=== PATIENT | female | born 1950 | race Caucasian/White ===

== ENCOUNTER → 2018-08-01 | Outpatient (CLI) | payer MEDICARE | END | disposition home or self-care (01) | LOC: RAH 09:48 | PROVIDERS: ATTEND Internal Medicine Gastroenterology | DX: K21.9 Gastro-esophageal reflux disease without esophagitis (principal) | CPT/HCPCS: 74240 ==

== ENCOUNTER 2019-08-16 15:06 | Inpatient (IN) | payer MEDICARE ==
[~2019-08-16] VITALS: Ht 154.9 cm; Wt 55.1 kg
[2019-08-16] MEDS ORDERED: SODIUM CHLORIDE 0.9% 1000ML 1,000 ML IV ONE (15:55)
[2019-08-16 16:20] LABS: BASOPHILS % (AUTO) 0.1 % (0.0-5.0); EOSINOPHILS % (AUTO) 0.1 % (0.0-8.0); HEMATOCRIT 37.3 % (36-48); LYMPHOCYTES % (AUTO) 1.5 % (21.0-51.0); MEAN CORPUSCULAR HEMOGLOBIN 27.9 pg (27.0-33.0); MEAN CORPUSCULAR HGB CONC 34.6 g/dL (32.0-36.0); MEAN CORPUSCULAR VOLUME 80.7 fL (79-99); MONOCYTES % (AUTO) 3.4 % (3.0-13.0); NEUTROPHILS % (AUTO) 93.5 % (40.0-77.0); PLATELET COUNT (AUTO) 148 K/uL (130-400); RED BLOOD CELL COUNT(AUTO) 4.62 MIL/uL (4.00-5.50); RED CELL DISTRIBUTION WIDTH 15.7 % (11.0-15.5); WHITE BLOOD COUNT (AUTO) 21.5 K/uL (4.8-10.8)
[2019-08-16] MEDS ORDERED: ZOSYN 3.375GM+NS 50ML 50 ML IV ONE (16:21)
[2019-08-16] MEDS ORDERED: VANCOMYCIN 1GM+NS 250ML 250 ML IV ONE (16:22)
[2019-08-16 16:33] LABS: INR 1.06 (0.85-1.15); PARTIAL THROMBOPLASTIN TIME 25.7 SEC (26.3-35.5); PROTHROMBIN TIME 11.4 SEC (9.6-11.6)
[2019-08-16 16:46] LABS: ALANINE AMINOTRANSFERASE 52 U/L (12-78); ALBUMIN 2.3 g/dL (3.5-5.0); ASPARTATE AMINOTRANSFERASE 16 U/L (10-37); CARBON DIOXIDE 33 mmol/L (21-32); CREATINE KINASE, TOTAL 58 U/L (21-232); CREATININE 0.6 mg/dL (0.5-1.5); GLOMERULAR FILTR. RATE CALC 106 mL/min (>60); GLUCOSE,RANDOM 165 mg/dL (70-105); MYOGLOBIN 65 ng/mL (10-92); SODIUM SERUM 124 mmol/L (136-145); TOTAL PROTEIN, SERUM 5.4 g/dL (6.0-8.3); TROPONIN I < 0.04 ng/mL (0.00-0.06); UREA NITROGEN, BLOOD 13 mg/dL (7-18)
[2019-08-16 16:49] LABS: POTASSIUM 2.9 mmol/L (3.5-5.1)
[2019-08-16 16:50] LABS: CHLORIDE 88 mmol/L (101-111)
[2019-08-16] MEDS ORDERED: POTASSIUM CHLORIDE 20MEQ/100ML 100 ML IV ONE (17:11)
[2019-08-16] MEDS ORDERED: IPRATROPIUM/ALBUTEROL SULFATE 3 ML SOLUTION IH ONE (17:20)
[2019-08-16 19:00] VITALS: BP 154/97
[2019-08-16 19:04] LABS: ABG BASE EXCESS 3.8 mmol/L (-2.0-3.0); ABG OXYGEN SATURATION 91.6 % (95.0-99.0); ABG PCO2 41 mmHg (32-45)
[2019-08-16] MEDS ORDERED: VANCOMYCIN PROTOCOL PER PHARMACY IV SCH (20:00)
[2019-08-16] MEDS: SODIUM CHLORIDE 0.9% 1000ML 1,000 ML IV SCH ×2 (20:00→23:57)
--- NOTE | 2019-08-16 20:00 | NUR ---
SOB PT NOTED TO BE HAVING SOB. RT INFORMS PRODUCT DEVELOPER THAT PT'S BIPAP HAD ALREADY INCREASED TO 50% FIO2. KEPT ON HIGH MONDRAGON'S POSITION. WILL MONITOR PT CLOSELY. Addendum: 08/16/19 at 2202 by BRENNA PIERSON RN RN Amended: Links added.
[2019-08-16] MEDS: ZOSYN 3.375GM+NS 50ML 50 ML IV SCH (21:24)
--- NOTE | 2019-08-16 21:25 | NUR ---
MEDS SHIFT ASSESSMENT DONE, PLEASE REFER TO CHART. DUE MEDS ADMINISTERED, TOLERATED WELL. KEPT RESTED AND COMFORTABLE. CALL LIGHT WITHIN REACH. KEPT ON BIPAP. WILL MONITOR CLOSELY.
[2019-08-16] MEDS: IPRATROPIUM/ALBUTEROL SULFATE 3 ML SOLUTION IH SCH (22:14)
--- NOTE | 2019-08-16 22:15 | NUR ---
RT RT INFORMS COMPUTER AIDED DESIGN DESIGNER THAT PT IS WHEEZING AND IS HAVING A LOT OF ANXIETY. TRIED TO CALM PT DOWN. BREATHING TREATMENT CURRENTLY BEING GIVEN. WILL GRACE OTTO.
--- NOTE | 2019-08-16 22:30 | NUR ---
CALL CALLED NUMBER AVAILABLE FOR DR LUONG, BUTTER LIQUEFIER, MESSAGED LEFT. AWAITING CALL BACK.
[2019-08-16] MEDS ORDERED: ANTACID PO (22:59)
[2019-08-16] MEDS ORDERED: CLOT15CR23 TP (22:59)
[2019-08-16] MEDS ORDERED: DOCU-116 PO (22:59)
[2019-08-16] MEDS ORDERED: METO-408 PO (22:59)
[2019-08-16] MEDS ORDERED: DEXA PO (22:59)
[2019-08-16] MEDS ORDERED: ALPR0.5T8 PO (22:59)
[2019-08-16] MEDS ORDERED: BENADRY PO (22:59)
[2019-08-16] MEDS ORDERED: [UNRECOGNIZED DRUG - OTHER] PO (22:59)
[2019-08-16] MEDS ORDERED: BALS60OI TP (22:59)
[2019-08-16] MEDS ORDERED: FLUT15.845 NS (22:59)
[2019-08-16] MEDS ORDERED: BENZ-51 PO (22:59)
[2019-08-16] MEDS ORDERED: ONDA8TAB12 PO (22:59)
[2019-08-16] MEDS ORDERED: PREGNENOLONE PO (22:59)
[2019-08-16] MEDS ORDERED: ESOM40CA54 PO (22:59)
[2019-08-16] MEDS ORDERED: IPRA3AMP24 IH (22:59)
[2019-08-16] MEDS ORDERED: AMLO-257 PO (22:59)
[2019-08-16] MEDS ORDERED: DIPH1TAB24 PO (22:59)
--- NOTE | 2019-08-16 23:00 | NUR ---
NO CALL BACK FROM DR LUONG. RESOURCE NURSE ASKED FOR ANOTHER NUMBER FOR MD. TRIED NUMBER BUT IS DISCONNECTED. PAGED DR BRAY VIA ANSWERING SERVICE. WAS MADE AWARE OF PT'S CONDITION, SOB WITH ANXIETY AND PT ON BIPAP. INFORMED OF DR OWEN'S ORDERS REQUESTED. NEW ORDERS GIVEN, PLEASE REFER TO CPOE. WILL MEDICATE PT.
[2019-08-16] MEDS ORDERED: DIPHENOXYLATE HCL/ATROPINE 2.5/0.025 MG TAB PO SCH (23:15)
[2019-08-16] MEDS ORDERED: DOCUSATE SODIUM 100 MG CAP PO PRN (23:15)
[2019-08-16 23:19] VITALS: BP 176/109
[2019-08-16] MEDS: METHYLPREDNISOLONE SOD SUCC 125MG/2ML VIAL IVP SCH (23:22)
[2019-08-16] MEDS: BENZONATATE 100 MG CAPSULE PO SCH (23:22)
[2019-08-16] MEDS: ALPRAZOLAM 0.5 MG TABLET PO PRN (23:22)
[2019-08-16] MEDS ORDERED: DIPHENOXYLATE HCL/ATROPINE 2.5/0.025 MG TAB PO PRN (23:30)
[2019-08-17] MEDS ORDERED: ONDANSETRON ODT 4 MG TAB PO PRN (00:15)
--- NOTE | 2019-08-17 02:00 | NUR ---
ROUNDS PT IS FAIRLY ASLEEP, STILL ON BIPAP. KEPT RESTED AND UNDISTURBED FOR NOW. WILL CONTINUE TO MONITOR. CALL LIGHT WITHIN REACH.
[2019-08-17] MEDS: IPRATROPIUM/ALBUTEROL SULFATE 3 ML SOLUTION IH SCH ×3 (03:00→10:00)
--- NOTE | 2019-08-17 03:00 | NUR ---
RT MARIO,RT, IN ROOM DOING TREATMENT WHEN PT WANTED TO GET OUT OF BED AND WANTING BIPAP TO BE REMOVED. RT EXPLAINED NEED FOR BIPAP AT THIS TIME AND CONSUMER LOAN UNDERWRITER EXPLAINED NEED TO BE BR FOR NOW. PT CALM DOWN AND AGREED TO KEEP BIPAP AND BE ON BR YET. WILL MONITOR CLOSELY.
[2019-08-17 03:30] VITALS: BP 147/79
[2019-08-17] MEDS: ZOSYN 3.375GM+NS 50ML 50 ML IV SCH ×3 (04:37→21:12)
[2019-08-17] MEDS: SODIUM CHLORIDE 0.9% 1000ML 1,000 ML IV SCH ×3 (05:18→23:27)
--- NOTE | 2019-08-17 05:20 | NUR ---
MEDS DUE MEDS ADMINISTERED, TOLERATED WELL. STILL HAVING SOB EVEN AT REST. KEPT PT ON BIPAP. ASSISTED WITH BEDPAN THEN CHANGED WET LINEN. RE-POSITIONED COMFORTABLY IN BED WITH HOB ELEVATED. FOR MORE CARE.
[2019-08-17] MEDS: METHYLPREDNISOLONE SOD SUCC 125MG/2ML VIAL IVP SCH ×4 (05:23→23:26)
[2019-08-17] MEDS: BENZONATATE 100 MG CAPSULE PO SCH ×4 (05:23→23:26)
--- NOTE | 2019-08-17 06:30 | NUR ---
PAGED PT'S LAB WORK ON ADMISSION IS ABNORMAL, NO REPEAT LABS THIS AM. PT HAS A PORT-A-CATH THAT WAS ACCESSED OUT PT, NEED ORDER FOR USE. DR OWEN PAGED VIA ANSWERING SERVICE, AWAITING CALL BACK.
[2019-08-17 07:24] LABS: HEMATOCRIT 40.7 % (36-48); MEAN CORPUSCULAR HEMOGLOBIN 26.9 pg (27.0-33.0); MEAN CORPUSCULAR HGB CONC 32.7 g/dL (32.0-36.0); MEAN CORPUSCULAR VOLUME 82.2 fL (79-99); PLATELET COUNT (AUTO) 128 K/uL (130-400); RED BLOOD CELL COUNT(AUTO) 4.95 MIL/uL (4.00-5.50); RED CELL DISTRIBUTION WIDTH 16.2 % (11.0-15.5); WHITE BLOOD COUNT (AUTO) 23.1 K/uL (4.8-10.8)
[2019-08-17 07:30] VITALS: BP 174/68
[2019-08-17 07:41] LABS: CREATININE 0.7 mg/dL (0.5-1.5); POTASSIUM 3.6 mmol/L (3.5-5.1)
--- NOTE | 2019-08-17 08:00 | NUR ---
PT AAO X3 REVIEW PLAN OF CARE, HOB UP ON 4 LITER NC, GET SOB ,AND WEAK , WHEN SHE MOVES ,WITH ANY A CTIVITY, REVIEW PLAN OF CARE, AND CALL LIGHT IN REACH,, PT GETTING BREATHING TREATMENT Q 4 HRS .
[2019-08-17] MEDS: FLUTICASONE PROPIONATE 50MCG/SPRAY 16 GM BOTTLE EN SCH (09:00)
[2019-08-17] MEDS ORDERED: [UNRECOGNIZED DRUG - OTHER] PO SCH (09:00)
[2019-08-17] MEDS: BALSAM PERU/CASTOR OIL 60 GM TUBE TP SCH ×4 (09:00→21:13)
[2019-08-17] MEDS: PHARMACY COMMUNICATION MISC SCH ×2 (09:00→21:00)
[2019-08-17] MEDS: PREGNENOLONE PO SCH (09:00)
[2019-08-17] MEDS: CLOTRIMAZOLE 30 GM CREAM.GM. TP SCH ×2 (09:00→21:13)
[2019-08-17] MEDS: METOPROLOL SUCCINATE 50 MG TAB.SR.24H PO SCH ×2 (10:00→21:13)
[2019-08-17] MEDS: AMLODIPINE BESYLATE 5 MG TAB PO SCH (10:00)
[2019-08-17] MEDS: PANTOPRAZOLE SODIUM 40 MG TABLET.DR PO SCH (10:00)
[2019-08-17] MEDS: VANCOMYCIN 1GM+NS 250ML 250 ML IV SCH ×2 (10:00→21:12)
[2019-08-17] MEDS: ALPRAZOLAM 0.5 MG TABLET PO PRN ×2 (10:17→21:13)
--- NOTE | 2019-08-17 10:49 | NUR ---
INITIAL Patient lives with spouse, Papi Nunez, . No home services. DME: walker, shower chair, BPM, O2 concentrator/portable. Patient does not remember the name of the O2 company. Patient is able to drive and complete ADL's independently. PCP is Dr. Constantino Willson. Pharmacy is [facility] located on [address] [facility] in [place]. DCP is home. Addendum: 08/17/19 at 1053 by ISMAEL BABIN SS Amended: Links added.
[2019-08-17 11:00] VITALS: BP 159/90
[2019-08-17] MEDS: IPRATROPIUM 0.5 MG/2.5 ML INH IH SCH ×3 (14:00→21:46)
[2019-08-17 16:00] VITALS: BP 173/94
[2019-08-17 20:10] VITALS: BP 160/94
--- NOTE | 2019-08-17 21:15 | NUR ---
MEDS SHIFT ASSESSMENT DONE, PLEASE REFER TO CHART. INSERTED A SECOND PIV G20 TO RFA. DUE MEDS ADMINISTERED, TOLERATED WELL. KEPT COMFORTABLE IN BED. CALL LIGHT WITHIN REACH. WILL MONITOR PT. Addendum: 08/18/19 at 0209 by BRENNA PIERSON RN RN Amended: Links added.
--- NOTE | 2019-08-17 22:20 | NUR ---
CONSULT RESOURCE NURSE ASKED FOR DR LUONG'S NUMBER. FIRST NUMBER IS A WRONG NUMBER. SECOND NUMBER CALLED AND WAS ABLE TO TALK TO DR LUONG. INFORMED OF CONSULT AND PT'S CONDITION. NO OTHER GIVEN AT THIS TIME. STATED HE WILL SEE PT IN AM.
[2019-08-17 23:35] VITALS: BP 153/92
[2019-08-18] VITALS (21 sets, daily range): BP systolic 115–170; BP diastolic 61–99
[2019-08-18] MEDS: IPRATROPIUM 0.5 MG/2.5 ML INH IH SCH ×6 (01:05→22:10)
--- NOTE | 2019-08-18 01:30 | NUR ---
ASSISTED PT ASSISTED WITH THE BEDPAN, NOTED TO BE VERY WEAK AT THIS TIME. TOTAL ASSIST WHEN TURNING IN BED. PT GETS VERY SOB WITH SLIGHT MOVEMENT. MAINTAINED HOB ELEVATED AND ON O2 AT 2LPM VIA NC.
[2019-08-18 01:41] LABS: APPEARANCE,URINE CLEAR (CLEAR); BILIRUBIN,URINE Negative (NEGATIVE); COLOR,URINE Yellow (YELLOW); GLUCOSE, URINE (UA) TRACE mg/dL (NEGATIVE); KETONES,URINE Negative (NEGATIVE); LEUKOCYTE ESTERASE ,URINE Negative (NEGATIVE); NITRATE,URINE Negative (NEGATIVE); OCCULT BLOOD,URINE Negative (NEGATIVE); PROTEIN,URINE POS 1+ mg/dL (NEGATIVE); UROBILINOGEN,URINE 0.2 mg/dL (0.2-1.0)
[2019-08-18 01:49] LABS: BACTERIA,URINE Few /HPF (None Seen); HYALINE CASTS, URINE 0-1 /LPF (0-1 /LPF); MUCUS,URINE Rare LPF (None Seen)
--- NOTE | 2019-08-18 04:00 | NUR ---
ROUNDS PT CALLS FOR HELP. NOTED TO STILL HAVING SOB AT REST. PT REQUESTING TO MARIELLA HER THIGHS. SHE CLAIMS THE NEED TO MOVE HER LEGS. DONE REQUESTED. KEPT RESTED WITH O2 VIA NC ON. WILL MONITOR CLOSELY. Addendum: 08/18/19 at 0429 by BRENNA PIERSON RN RN Amended: Links added.
[2019-08-18] MEDS: ZOSYN 3.375GM+NS 50ML 50 ML IV SCH ×3 (04:34→20:54)
[2019-08-18] MEDS: BENZONATATE 100 MG CAPSULE PO SCH ×4 (04:39→23:13)
[2019-08-18] MEDS: METHYLPREDNISOLONE SOD SUCC 125MG/2ML VIAL IVP SCH ×3 (05:09→18:20)
--- NOTE | 2019-08-18 05:15 | NUR ---
PAGED PT CLAIMS OF BLE PAINS. NO PRN MEDS ORDERED. PAGED DR OWEN VIA ANSWERING SERVICE. CALLED BACK AND REFERRED PT'S COMPLAINTS OF PAINS. NEW ORDER GIVEN, PLEASE REFER TO CPOE.
[2019-08-18] MEDS ORDERED: MORPHINE SULFATE 2 MG/ML 1ML SYG IVP PRN (05:30)
--- NOTE | 2019-08-18 05:44 | NUR ---
PAIN PT STILL MOANING OF PAINS, CLAIMS OF BLE PAINS. MEDICATED WITH MORPHINE IV MD ORDERED. KEPT COMFORTABLE IN BED. WILL RE-ASSESS PT.
--- NOTE | 2019-08-18 06:40 | NUR ---
SPO2 86%-88% INCREASED FIO2 80% SPO2 91% ON BIPAP Addendum: 08/18/19 at 0657 by JOIE MCPHERSON RT Amended: Links added.
--- NOTE | 2019-08-18 08:35 | NUR ---
PT CONTINUED WITH LETHARGY AND ABSENT BREATH SOUNDS TO BILATERAL LUNG BASES. REPORTED PT'S CONDITION TO DR OWEN. REC'D ORDERS TO TRANSFER TO ICU. MED SURG DIRECTOR DEBRA SPOKE WITH DAUGHTER EVANGELINA GARCIA, MADE AWARE OF PT STATUS AND INTENT TO TRANSFER.
[2019-08-18] MEDS: AMLODIPINE BESYLATE 5 MG TAB PO SCH (09:00)
[2019-08-18] MEDS: PREGNENOLONE PO SCH (09:00)
[2019-08-18] MEDS: PANTOPRAZOLE SODIUM 40 MG TABLET.DR PO SCH (09:00)
[2019-08-18] MEDS: FLUTICASONE PROPIONATE 50MCG/SPRAY 16 GM BOTTLE EN SCH (09:00)
[2019-08-18] MEDS: METOPROLOL SUCCINATE 50 MG TAB.SR.24H PO SCH ×2 (09:00→20:54)
--- NOTE | 2019-08-18 09:12 | NUR ---
REPORT REPORT GIVEN TO JAYLA ON 2ND FLOOR AT APPROX 0900 HOURS. MELONIE STATED SHE WAS READY TO RECEIVE PATIENT. ALSO CONTACTED PATIENT'S DAUGHTER EVANGELINA AT [phone] AND ADVISED HER THE PATIENT WAS BEING TRANSFERRED TO ICU. ARRANGEMENTS ARE BEING MADE FOR DAUGHTER TO BE ABLE TO SEE PATIENT. DAUGHTER ALSO SPOKE WITH DEBRA MED/SURG DIRECTOR.
[2019-08-18] MEDS ORDERED: COMPOUND IV REFRIGERATED 1 EACH IVSOLN MISC PRN (09:30)
--- NOTE | 2019-08-18 09:44 | NUR ---
IN ICU DUE TO RESPIRATORY DISTRESS/FAILURE. PT IS LETHARGIC OPENS EYES TO VOICE, DAUGHTER AT BEDSIDE
--- NOTE | 2019-08-18 10:13 | NUR ---
SPOKE TO OVER PHONE, WANTS FULL CODE, WILL CONTINUE TO UPDATE ON PTS CONDITION
[2019-08-18 10:40] LABS: ABG BASE EXCESS -1.4 mmol/L (-2.0-3.0); ABG HCO3 27.1 mmol/L (21.0-28.0); ABG OXYGEN SATURATION 89.7 % (95.0-99.0); ABG PCO2 62 mmHg (32-45)
--- NOTE | 2019-08-18 10:46 | NUR ---
BiPAP changes per [facility] ADMISSIONS DEAN: Rate to 18bpm & FiO2 1.0
--- NOTE | 2019-08-18 10:49 | NUR ---
ABG RESULTED TO MD, INCREASED RATE AND O2 WILL RECHECK IN 2 HRS
[2019-08-18] MEDS ORDERED: FUROSEMIDE 10 MG/ML 4ML VIAL IV SCH ×2 (11:00→11:45)
[2019-08-18] MEDS ORDERED: METHYLPREDNISOLONE SOD SUCC 125MG/2ML VIAL IVP SCH (11:15)
[2019-08-18] MEDS: VANCOMYCIN 1.25 GM in SODIUM CHLORIDE 0.9% 250 ML IV SCH ×2 (12:13→22:51)
[2019-08-18 12:17] LABS: BASOPHILS % (AUTO) 0.1 % (0.0-5.0); HEMATOCRIT 37.5 % (36-48); LYMPHOCYTES % (AUTO) 1.1 % (21.0-51.0); MEAN CORPUSCULAR HEMOGLOBIN 27.8 pg (27.0-33.0); MEAN CORPUSCULAR HGB CONC 32.3 g/dL (32.0-36.0); MEAN CORPUSCULAR VOLUME 86.2 fL (79-99); MONOCYTES % (AUTO) 2.5 % (3.0-13.0); NEUTROPHILS % (AUTO) 94.4 % (40.0-77.0); PLATELET COUNT (AUTO) 114 K/uL (130-400); RED BLOOD CELL COUNT(AUTO) 4.35 MIL/uL (4.00-5.50); WHITE BLOOD COUNT (AUTO) 25.2 K/uL (4.8-10.8)
[2019-08-18 12:30] LABS: INR 1.06 (0.85-1.15); PARTIAL THROMBOPLASTIN TIME 25.7 SEC (26.3-35.5); PROTHROMBIN TIME 11.4 SEC (9.6-11.6)
[2019-08-18] MEDS: CLOTRIMAZOLE 30 GM CREAM.GM. TP SCH ×2 (12:50→20:55)
[2019-08-18] MEDS: BALSAM PERU/CASTOR OIL 60 GM TUBE TP SCH ×3 (12:51→20:55)
[2019-08-18 12:56] LABS: CREATININE 0.6 mg/dL (0.5-1.5); POTASSIUM 3.5 mmol/L (3.5-5.1)
[2019-08-18 14:09] LABS: ABG BASE EXCESS 0.6 mmol/L (-2.0-3.0); ABG HCO3 29.3 mmol/L (21.0-28.0); ABG OXYGEN SATURATION 96.6 % (95.0-99.0); ABG PCO2 65 mmHg (32-45)
[2019-08-18] MEDS: DOXYCYCLINE 100MG+NS 250ML 250 ML IV SCH (14:44)
--- NOTE | 2019-08-18 15:00 | NUR ---
CHERISE GARDNER AND FAMILY HAD A CONFERENCE SPOKE ABOUT PLAN OF CARE FOR PATIENT.
--- NOTE | 2019-08-18 16:16 | NUR ---
FAMILY WILL BE ALLOWED VISITATIONS FOR PATIENT
[2019-08-18 17:30] LABS: ABG BASE EXCESS 3.9 mmol/L (-2.0-3.0); ABG HCO3 30.1 mmol/L (21.0-28.0); ABG OXYGEN SATURATION 95.8 % (95.0-99.0); ABG PCO2 51 mmHg (32-45)
[2019-08-18] MEDS: BUDESONIDE 0.5 MG/2 ML INH IH SCH (18:26)
--- NOTE | 2019-08-18 19:10 | NUR ---
BIPAP BREAK, TOLERATED WITHOUT LOSING OXYGENATION, ABLE TO DRINK 1 APPLE JUICE
[2019-08-18] MEDS ORDERED: POTASSIUM CHLORIDE 20 MEQ ERTAB PO PRN (20:00)
[2019-08-18] MEDS ORDERED: LIDOCAINE HCL-MPF 1% 2ML VIAL IV PRN (20:00)
[2019-08-18] MEDS: OSELTAMIVIR PHOSPHATE 75 MG CAP PO SCH (20:54)
[2019-08-18] MEDS: POTASSIUM CHLORIDE 20MEQ/100ML 100 ML IV PRN (21:03)
[2019-08-18] MEDS ORDERED: ONDANSETRON HCL 4 MG/2 ML VIAL ONE (21:15)
[2019-08-19] VITALS (24 sets, daily range): BP systolic 141–168; BP diastolic 78–100
[2019-08-19] MEDS: METHYLPREDNISOLONE SOD SUCC 125MG/2ML VIAL IVP SCH ×5 (00:34→23:51)
[2019-08-19] MEDS: POTASSIUM CHLORIDE 20MEQ/100ML 100 ML IV PRN (01:02)
[2019-08-19 01:06] LABS: ABG BASE EXCESS 4.3 mmol/L (-2.0-3.0); ABG HCO3 30.2 mmol/L (21.0-28.0); ABG OXYGEN SATURATION 96.1 % (95.0-99.0); ABG PCO2 51 mmHg (32-45)
[2019-08-19] MEDS: DOXYCYCLINE 100MG+NS 250ML 250 ML IV SCH ×2 (01:26→13:09)
[2019-08-19] MEDS: IPRATROPIUM 0.5 MG/2.5 ML INH IH SCH ×7 (01:33→22:32)
[2019-08-19] MEDS: BENZONATATE 100 MG CAPSULE PO SCH ×4 (05:15→23:51)
[2019-08-19 05:36] LABS: BASOPHILS % (AUTO) 0.2 % (0.0-5.0); HEMATOCRIT 35.1 % (36-48); LYMPHOCYTES % (AUTO) 1.1 % (21.0-51.0); MEAN CORPUSCULAR HEMOGLOBIN 27.5 pg (27.0-33.0); MEAN CORPUSCULAR HGB CONC 32.5 g/dL (32.0-36.0); MEAN CORPUSCULAR VOLUME 84.6 fL (79-99); MONOCYTES % (AUTO) 2.5 % (3.0-13.0); NEUTROPHILS % (AUTO) 95.1 % (40.0-77.0); PLATELET COUNT (AUTO) 136 K/uL (130-400); RED BLOOD CELL COUNT(AUTO) 4.15 MIL/uL (4.00-5.50); RED CELL DISTRIBUTION WIDTH 16.5 % (11.0-15.5); WHITE BLOOD COUNT (AUTO) 21.8 K/uL (4.8-10.8)
[2019-08-19 05:52] LABS: CREATININE 0.6 mg/dL (0.5-1.5); MAGNESIUM 1.9 mg/dL (1.80-2.40); PHOSPHORUS 1.7 mg/dL (2.5-4.9); POTASSIUM 3.7 mmol/L (3.5-5.1)
[2019-08-19] MEDS ORDERED: FUROSEMIDE 10 MG/ML 2ML VIAL IV SCH (06:00)
[2019-08-19] MEDS ORDERED: FUROSEMIDE 10 MG/ML 2ML VIAL ONE (06:00)
[2019-08-19] MEDS: ZOSYN 3.375GM+NS 50ML 50 ML IV SCH ×3 (06:02→20:24)
[2019-08-19] MEDS: BUDESONIDE 0.5 MG/2 ML INH IH SCH ×2 (06:49→18:56)
[2019-08-19] MEDS: PREGNENOLONE PO SCH (09:00)
[2019-08-19] MEDS: PANTOPRAZOLE SODIUM 40 MG TABLET.DR PO SCH (09:16)
[2019-08-19] MEDS: OSELTAMIVIR PHOSPHATE 75 MG CAP PO SCH ×2 (09:16→20:24)
[2019-08-19] MEDS: FLUTICASONE PROPIONATE 50MCG/SPRAY 16 GM BOTTLE EN SCH (09:16)
[2019-08-19] MEDS: METOPROLOL SUCCINATE 50 MG TAB.SR.24H PO SCH ×2 (09:17→20:24)
[2019-08-19] MEDS: CLOTRIMAZOLE 30 GM CREAM.GM. TP SCH ×2 (09:18→21:22)
[2019-08-19] MEDS: AMLODIPINE BESYLATE 5 MG TAB PO SCH (09:18)
[2019-08-19] MEDS: BALSAM PERU/CASTOR OIL 60 GM TUBE TP SCH ×4 (09:19→20:37)
[2019-08-19] MEDS: ENOXAPARIN SODIUM 40 MG/0.4 ML SYRINGE SQ SCH (09:20)
[2019-08-19] MEDS: VANCOMYCIN 1.25 GM in SODIUM CHLORIDE 0.9% 250 ML IV SCH ×2 (09:49→23:51)
[2019-08-19] MEDS: NEUTRA-PHOS PACKET 1 EACH PO SCH ×3 (09:55→20:35)
--- NOTE | 2019-08-19 10:15 | NUR ---
ADRIEL LMA,WIRE WINDER AT BEDSIDE, MADE AWARE ABOUT PENDING CT CHEST, INSTRUCTIONS GIVEN TO WAIT FOR DR ORO, PATIENT REMAINS CALM WITH BIPAP IN PLACE
--- NOTE | 2019-08-19 10:27 | NUR ---
SHERRI HOOVER Pt CURRENTLY ON BIPAP. Pt NOT APPROPRIATE FOR EVALUATION AT THIS TIME. ROOM WORKER COORDINATED WITH NURSE LA. EVALUATION TO BE COMPLETED WHEN Pt'S RESPIRATORY STATUS IMPROVES. Pt AT HIGH RISK FOR ASPIRATION AT THIS TIME. Addendum: 08/19/19 at 1033 by NASRIN DAMON, SPT ST Amended: Links added.
--- NOTE | 2019-08-19 11:25 | NUR ---
TESSALON NOT GIVEN, UNABLE TO SWALLOW CAPSULE, PENDING BEDSIDE SWALLOW STUDY
--- NOTE | 2019-08-19 15:48 | NUR ---
1541 gave BPCI Letter to Rosendo(RN), I asked if he could please give patient BPCI Letter since I am not allowed to enter his room because he is on Droplet Isolation. He stated he would give pt the BPCI Letter.
[2019-08-19] MEDS: FUROSEMIDE 10 MG/ML 2ML VIAL IV SCH (16:45)
[2019-08-19] MEDS: MAGNESIUM 2GM PREMIX 50ML 50 ML IV SCH (16:45)
[2019-08-19] MEDS: MORPHINE SULFATE 2 MG/ML 1ML SYG IVP PRN (16:47)
--- NOTE | 2019-08-19 17:00 | NUR ---
ORDERS GIVEN PER DR HUIZAR TO INSERT NGT AND START JEVITY AT 20ML/HR, BUT PT'S REQUESTING TO HOLD OFF ON INSERTION OF NGT AND WAIT UNTIL TOMORROW AND SEE HOW PATIENT WILL BE DOING. DR HUIZAR MADE AWARE ABOUT PT'S REQUEST.
[2019-08-19] MEDS: POTASSIUM PHOS 15 mMOL+NS250ML 250 ML IV PRN (17:23)
[2019-08-19] MEDS: ONDANSETRON HCL 4 MG/2 ML VIAL IVP PRN (21:50)
[2019-08-20] VITALS (25 sets, daily range): BP systolic 127–170; BP diastolic 64–104
[2019-08-20] MEDS: IPRATROPIUM 0.5 MG/2.5 ML INH IH SCH ×6 (01:19→21:19)
[2019-08-20] MEDS: DOXYCYCLINE 100MG+NS 250ML 250 ML IV SCH ×2 (01:49→13:07)
[2019-08-20] MEDS: FUROSEMIDE 10 MG/ML 2ML VIAL IV SCH ×2 (02:00→16:24)
[2019-08-20] MEDS: ZOSYN 3.375GM+NS 50ML 50 ML IV SCH ×3 (05:06→20:12)
[2019-08-20] MEDS: ONDANSETRON HCL 4 MG/2 ML VIAL IVP PRN ×2 (05:29→21:23)
[2019-08-20] MEDS: METHYLPREDNISOLONE SOD SUCC 125MG/2ML VIAL IVP SCH ×3 (05:30→17:12)
[2019-08-20] MEDS: MORPHINE SULFATE 2 MG/ML 1ML SYG IVP PRN ×3 (05:30→17:13)
[2019-08-20] MEDS: BENZONATATE 100 MG CAPSULE PO SCH ×4 (05:31→20:12)
[2019-08-20 06:44] LABS: MEAN CORPUSCULAR HEMOGLOBIN 27.7 pg (27.0-33.0); MEAN CORPUSCULAR HGB CONC 32.9 g/dL (32.0-36.0); MEAN CORPUSCULAR VOLUME 84.3 fL (79-99); PLATELET COUNT (AUTO) 155 K/uL (130-400); RED BLOOD CELL COUNT(AUTO) 4.15 MIL/uL (4.00-5.50); RED CELL DISTRIBUTION WIDTH 16.8 % (11.0-15.5); WHITE BLOOD COUNT (AUTO) 19.9 K/uL (4.8-10.8)
[2019-08-20 07:05] LABS: ALBUMIN 2.4 g/dL (3.5-5.0); BILIRUBIN,TOTAL 1.5 mg/dL (0.2-1.0); CREATININE 0.7 mg/dL (0.5-1.5); MAGNESIUM 1.8 mg/dL (1.80-2.40); PHOSPHORUS 2.3 mg/dL (2.5-4.9); TOTAL PROTEIN, SERUM 5.4 g/dL (6.0-8.3)
[2019-08-20] MEDS: BUDESONIDE 0.5 MG/2 ML INH IH SCH ×2 (07:05→19:13)
[2019-08-20 07:07] LABS: POTASSIUM 2.3 mmol/L (3.5-5.1)
[2019-08-20] MEDS: POTASSIUM CHLORIDE 20MEQ/100ML 100 ML IV PRN ×3 (07:20→13:07)
[2019-08-20] MEDS: MAGNESIUM 2GM PREMIX 50ML 50 ML IV SCH (08:02)
[2019-08-20] MEDS: ENOXAPARIN SODIUM 40 MG/0.4 ML SYRINGE SQ SCH (08:03)
[2019-08-20] MEDS: PANTOPRAZOLE SODIUM 40 MG TABLET.DR PO SCH (08:03)
[2019-08-20] MEDS: AMLODIPINE BESYLATE 5 MG TAB PO SCH (08:03)
[2019-08-20] MEDS: OSELTAMIVIR PHOSPHATE 75 MG CAP PO SCH ×2 (08:03→20:13)
[2019-08-20] MEDS: METOPROLOL SUCCINATE 50 MG TAB.SR.24H PO SCH ×2 (08:03→20:13)
[2019-08-20] MEDS: NEUTRA-PHOS PACKET 1 EACH PO SCH (08:05)
[2019-08-20] MEDS: FLUTICASONE PROPIONATE 50MCG/SPRAY 16 GM BOTTLE EN SCH (08:06)
[2019-08-20] MEDS: BALSAM PERU/CASTOR OIL 60 GM TUBE TP SCH ×4 (08:06→21:31)
[2019-08-20] MEDS: CLOTRIMAZOLE 30 GM CREAM.GM. TP SCH ×2 (08:07→21:32)
[2019-08-20 08:37] LABS: LYMPHOCYTES % (MANUAL) 1 % (22-44); MONOCYTES % (MANUAL) 3 % (2-9); SEGMENTED NEUTROPHILS % 96 % (40-70)
[2019-08-20 08:38] LABS: MAN.DIFF COMMENT-IMPRESSION MANUAL DIFFERENTIAL; PLATELET MORPHOLOGY COMMENT ADEQUATE
--- NOTE | 2019-08-20 08:40 | NUR ---
FOLLOW UP COMPLETED. HOLD EVAL. Pt CURRENTLY TOLERATING 5 MINUTES OFF OF THE BIPAP BEFORE DROP IN OXYGEN. Pt CONTINUES TO BE AT A HIGH RISK FOR ASPIRATION AT THIS TIME. RECOMMEND NPO, ALTERNATE MEANS OF NUTRITION/HYDRATION (REFUSED AT THIS TIME). SOURCE INSPECTOR WILL CONTINUE TO FOLLOW Pt. EVALUATION IS RECOMMENDED WHEN Pt TOLERATES BEING OFF OF BIPAP FOR 45-60 MINUTES TO TOLERATE P.O. INTAKE. SOURCE INSPECTOR COORDINATED CARE WITH NURSE LA. Addendum: 08/20/19 at 0845 by NASRIN DAMON [facility] ST Amended: Links added.
[2019-08-20] MEDS: POTASSIUM PHOS 15 mMOL+NS250ML 250 ML IV PRN (09:20)
[2019-08-20] MEDS: VANCOMYCIN 1.25 GM in SODIUM CHLORIDE 0.9% 250 ML IV SCH (09:48)
--- NOTE | 2019-08-20 11:21 | NUR ---
TESSALON NOT GIVEN, UNABLE TO SWALLOW CAPSULE
--- NOTE | 2019-08-20 11:35 | NUR ---
RD NOTIFICATION Currently on Bipap. MANAGER PACKAGING was consulted and recommended alternate means of nutrition due to high aspiration risk >> refused at this time. Diet: NPO, until further notice. Labs and meds reviewed. Skin is intact. RD recommends to continue NPO until further notice Consult MANAGER PACKAGING when off Bipap If family agrees, start tube feeding via NGT using Jevity 1.5 start full strength at 25ml/hr increase rate as tolerated by 5mls every 5hrs goal rate is 40ml/hr flush with 95mls Q6hrs Monitor residuals, labs, BM RD will continue to monitor and follow up, thank you. Addendum: 08/20/19 at [address] Amended: Links added.
[2019-08-20 12:33] LABS: MAGNESIUM 2.6 mg/dL (1.80-2.40); POTASSIUM 3.3 mmol/L (3.5-5.1)
[2019-08-20] MEDS: POTASSIUM CHLORIDE 10% ELIXIR 20 MEQ/15 ML UDCUP PO PRN (16:24)
[2019-08-20] MEDS ORDERED: ACETAMINOPHEN ELIXIR 650 MG/20.3 ML UDCUP ONE (17:57)
[2019-08-20] MEDS ORDERED: METHYLPREDNISOLONE SOD SUCC 125MG/2ML VIAL IVP SCH (19:00)
[2019-08-20] MEDS: ACETAMINOPHEN ELIXIR 650 MG/20.3 ML UDCUP PEG PRN (20:16)
[2019-08-20] MEDS: METHYLPREDNISOLONE SOD SUCC 40MG/ML 1ML IVP SCH (20:21)
[2019-08-21] VITALS (22 sets, daily range): BP systolic 136–178; BP diastolic 61–115
[2019-08-21] MEDS: VANCOMYCIN 1GM+NS 250ML 250 ML IV SCH ×3 (00:45→23:50)
[2019-08-21] MEDS: DOXYCYCLINE 100MG+NS 250ML 250 ML IV SCH ×2 (02:00→14:00)
[2019-08-21] MEDS: IPRATROPIUM 0.5 MG/2.5 ML INH IH SCH ×3 (03:12→10:50)
[2019-08-21 03:50] LABS: HEMATOCRIT 34.1 % (36-48); MEAN CORPUSCULAR HEMOGLOBIN 27.2 pg (27.0-33.0); MEAN CORPUSCULAR HGB CONC 31.4 g/dL (32.0-36.0); MEAN CORPUSCULAR VOLUME 86.8 fL (79-99); PLATELET COUNT (AUTO) 135 K/uL (130-400); RED BLOOD CELL COUNT(AUTO) 3.93 MIL/uL (4.00-5.50); RED CELL DISTRIBUTION WIDTH 17.6 % (11.0-15.5); WHITE BLOOD COUNT (AUTO) 17.9 K/uL (4.8-10.8)
[2019-08-21 04:24] LABS: ALBUMIN 2.3 g/dL (3.5-5.0); BILIRUBIN,TOTAL 1.4 mg/dL (0.2-1.0); CREATININE 0.8 mg/dL (0.5-1.5); MAGNESIUM 2.3 mg/dL (1.80-2.40); POTASSIUM 3.1 mmol/L (3.5-5.1); TOTAL PROTEIN, SERUM 5.1 g/dL (6.0-8.3)
[2019-08-21] MEDS: FUROSEMIDE 10 MG/ML 2ML VIAL IV SCH ×2 (04:46→16:45)
[2019-08-21] MEDS: ZOSYN 3.375GM+NS 50ML 50 ML IV SCH ×3 (04:46→20:42)
[2019-08-21] MEDS: METHYLPREDNISOLONE SOD SUCC 40MG/ML 1ML IVP SCH ×3 (04:46→19:46)
[2019-08-21] MEDS: BUDESONIDE 0.5 MG/2 ML INH IH SCH ×2 (06:06→18:34)
[2019-08-21] MEDS: BENZONATATE 100 MG CAPSULE PO SCH ×4 (06:27→23:05)
--- NOTE | 2019-08-21 07:15 | NUR ---
DAUGHTER AT BEDSIDE AND THE LIGHT WAS TURNED ON IN ROOM AND THE DAUGHTER GOT UPSET WITH NURSING STAFF "MY MOM JUST FELL ASLEEP DID YOU HAVE TO TURN THE LIGHTS ON?" DAUGHTER WAS ADVISED THAT THE NURSING STAFF HAD TO SEE PATIENT IN ORDER TO ASSESS PATIENT AND THAT PT HAD IV PUMP BEEPING AND NEEDED TO SEE THE PUMP AND ASSESS THE ALARM THAT THE PUMP HAD TO CORRECT THE PROBLEM IF ANY. DAUGHTER DID NOT APPEAR TO BE COMFORTABLE WITH NURSING STAFF NOT TURNING LIGHT OFF DAUGHTER HAD REQUESTED.
[2019-08-21] MEDS: CLOTRIMAZOLE 30 GM CREAM.GM. TP SCH ×2 (09:00→20:46)
[2019-08-21] MEDS: BALSAM PERU/CASTOR OIL 60 GM TUBE TP SCH ×4 (09:00→20:46)
[2019-08-21] MEDS: FLUTICASONE PROPIONATE 50MCG/SPRAY 16 GM BOTTLE EN SCH (09:00)
--- NOTE | 2019-08-21 09:47 | NUR ---
FOLLOW UP COMPLETED. SHERRI HOOVER. Pt CONTINUES WITH NACHO AT THIS TIME. RECRUITER MANAGER COORDINATED WITH NURSE CARPIO AND WILL CONTINUE TO FOLLOW Pt. FOR SKILLED SPEECH THERAPY EVALUATION. Addendum: 08/21/[address] DAWOOD ESCOBAR Amended: Links added.
[2019-08-21] MEDS ORDERED: PHARMACY COMMUNICATION MISC SCH ×2 (11:15→18:15)
[2019-08-21] MEDS ORDERED: POTASSIUM CHLORIDE 20 MEQ ERTAB PO SCH (12:21)
[2019-08-21] MEDS ORDERED: IPRATROPIUM 0.5 MG/2.5 ML INH IH PRN (12:30)
[2019-08-21] MEDS ORDERED: NOREPINEPHRINE BITARTRATE 8 MG/NS 250ML IV SCH ×2 (12:30)
--- NOTE | 2019-08-21 13:00 | NUR ---
KUB XRAY WAS DONE ORDERED BY DR. RAMIREZ FOR HER ABDOMINAL PAIN.
[2019-08-21] MEDS ORDERED: ARTIFICAL TEARS SOL 15 ML OU PRN (14:15)
[2019-08-21] MEDS: ENOXAPARIN SODIUM 40 MG/0.4 ML SYRINGE SQ SCH (16:46)
[2019-08-21] MEDS: OSELTAMIVIR PHOSPHATE 75 MG CAP PO SCH ×2 (16:46→20:43)
[2019-08-21] MEDS: AMLODIPINE BESYLATE 5 MG TAB PO SCH (16:47)
[2019-08-21] MEDS: METOPROLOL SUCCINATE 50 MG TAB.SR.24H PO SCH (16:47)
[2019-08-21] MEDS: PANTOPRAZOLE SODIUM 40 MG TABLET.DR PO SCH (16:48)
[2019-08-21] MEDS: LANSOPRAZOLE 15 MG SOLU TAB PEG SCH (18:45)
[2019-08-21] MEDS: MELATONIN PO SCH (20:43)
[2019-08-21] MEDS: POLYETHYLENE GLYCOL 3350 17 GM POWD.PACK PO SCH (20:43)
[2019-08-22] VITALS (24 sets, daily range): BP systolic 133–177; BP diastolic 67–117
[2019-08-22] MEDS: FUROSEMIDE 10 MG/ML 2ML VIAL IV SCH ×2 (02:32→17:06)
[2019-08-22] MEDS: DOXYCYCLINE 100MG+NS 250ML 250 ML IV SCH ×2 (02:32→17:07)
[2019-08-22] MEDS: METHYLPREDNISOLONE SOD SUCC 40MG/ML 1ML IVP SCH ×3 (04:02→19:57)
[2019-08-22 04:09] LABS: HEMATOCRIT 37.4 % (36-48); MEAN CORPUSCULAR HEMOGLOBIN 27.3 pg (27.0-33.0); MEAN CORPUSCULAR HGB CONC 30.7 g/dL (32.0-36.0); MEAN CORPUSCULAR VOLUME 88.6 fL (79-99); PLATELET COUNT (AUTO) 154 K/uL (130-400); RED BLOOD CELL COUNT(AUTO) 4.22 MIL/uL (4.00-5.50); RED CELL DISTRIBUTION WIDTH 17.4 % (11.0-15.5); WHITE BLOOD COUNT (AUTO) 22.5 K/uL (4.8-10.8)
[2019-08-22 04:33] LABS: CREATININE 0.8 mg/dL (0.5-1.5); MAGNESIUM 2.1 mg/dL (1.80-2.40); PHOSPHORUS 3.1 mg/dL (2.5-4.9)
[2019-08-22 04:43] LABS: POTASSIUM 2.7 mmol/L (3.5-5.1)
[2019-08-22] MEDS: ZOSYN 3.375GM+NS 50ML 50 ML IV SCH ×3 (04:50→20:58)
[2019-08-22] MEDS: POTASSIUM CHLORIDE 20MEQ/100ML 100 ML IV PRN ×3 (04:51→22:11)
[2019-08-22] MEDS: POTASSIUM CHLORIDE 10% ELIXIR 20 MEQ/15 ML UDCUP PO PRN ×3 (04:51→22:12)
[2019-08-22] MEDS: BENZONATATE 100 MG CAPSULE PO SCH ×4 (05:15→23:24)
[2019-08-22] MEDS: BUDESONIDE 0.5 MG/2 ML INH IH SCH ×2 (06:31→18:28)
[2019-08-22] MEDS: CLOTRIMAZOLE 30 GM CREAM.GM. TP SCH ×2 (09:00→21:06)
[2019-08-22] MEDS: FLUTICASONE PROPIONATE 50MCG/SPRAY 16 GM BOTTLE EN SCH (09:00)
[2019-08-22] MEDS: BALSAM PERU/CASTOR OIL 60 GM TUBE TP SCH ×4 (09:00→21:04)
[2019-08-22] MEDS: OSELTAMIVIR PHOSPHATE 75 MG CAP PO SCH ×2 (09:02→20:59)
[2019-08-22] MEDS: AMLODIPINE BESYLATE 5 MG TAB PO SCH (09:02)
[2019-08-22] MEDS: POLYETHYLENE GLYCOL 3350 17 GM POWD.PACK PO SCH ×2 (09:03→20:58)
[2019-08-22] MEDS: LANSOPRAZOLE 15 MG SOLU TAB PEG SCH (09:03)
[2019-08-22] MEDS: ENOXAPARIN SODIUM 40 MG/0.4 ML SYRINGE SQ SCH (09:04)
--- NOTE | 2019-08-22 09:41 | NUR ---
FOLLOW UP COMPLETED. PER NURSE, Pt. CONTINUES WITH BIPAP. Pt NOT APPROPRIATE FOR EVALUATION AT THIS TIME. EVALUATION TO BE COMPLETED WHEN Pt'S RESPIRATORY STATUS IMPROVES. ENVIRONMENTAL SYSTEMS COORDINATOR WILL CONTINUE TO FOLLOW Pt. Addendum: 08/22/[address] DAWOOD ESCOBAR Amended: Links added.
[2019-08-22] MEDS ORDERED: DEXAMETHASONE SOD PHOSPHATE 4 MG/ML 1ML VIAL IVP SCH (12:00)
[2019-08-22] MEDS: VANCOMYCIN 1GM+NS 250ML 250 ML IV SCH ×2 (12:29→23:25)
[2019-08-22] MEDS: ACETAMINOPHEN ELIXIR 650 MG/20.3 ML UDCUP PEG PRN (16:59)
[2019-08-22 18:59] LABS: ABG BASE EXCESS 18.2 mmol/L (-2.0-3.0); ABG HCO3 43.2 mmol/L (21.0-28.0); ABG OXYGEN SATURATION 95.7 % (95.0-99.0); ABG PCO2 51 mmHg (32-45)
[2019-08-22] MEDS: METOPROLOL TARTRATE 25 MG TAB PO SCH (20:58)
[2019-08-22] MEDS: MELATONIN PO SCH (20:59)
[2019-08-23] VITALS (29 sets, daily range): BP systolic 80–160; BP diastolic 54–106
[2019-08-23 00:19] LABS: POTASSIUM 3.9 mmol/L (3.5-5.1)
[2019-08-23] MEDS: DOXYCYCLINE 100MG+NS 250ML 250 ML IV SCH ×2 (01:23→13:17)
[2019-08-23] MEDS: FUROSEMIDE 10 MG/ML 2ML VIAL IV SCH (02:30)
[2019-08-23 03:55] LABS: MEAN CORPUSCULAR HEMOGLOBIN 27.7 pg (27.0-33.0); MEAN CORPUSCULAR HGB CONC 30.5 g/dL (32.0-36.0); MEAN CORPUSCULAR VOLUME 90.7 fL (79-99); PLATELET COUNT (AUTO) 122 K/uL (130-400); RED BLOOD CELL COUNT(AUTO) 4.19 MIL/uL (4.00-5.50); RED CELL DISTRIBUTION WIDTH 17.8 % (11.0-15.5); WHITE BLOOD COUNT (AUTO) 20.7 K/uL (4.8-10.8)
[2019-08-23 04:08] LABS: CREATININE 0.9 mg/dL (0.5-1.5); MAGNESIUM 1.9 mg/dL (1.80-2.40); PHOSPHORUS 2.8 mg/dL (2.5-4.9); POTASSIUM 3.5 mmol/L (3.5-5.1)
[2019-08-23] MEDS: METHYLPREDNISOLONE SOD SUCC 40MG/ML 1ML IVP SCH ×3 (04:23→19:34)
[2019-08-23] MEDS: ZOSYN 3.375GM+NS 50ML 50 ML IV SCH ×3 (04:23→20:22)
[2019-08-23] MEDS: BENZONATATE 100 MG CAPSULE PO SCH ×4 (05:15→23:33)
[2019-08-23] MEDS: BUDESONIDE 0.5 MG/2 ML INH IH SCH ×2 (07:10→18:03)
[2019-08-23] MEDS: ACETAMINOPHEN ELIXIR 650 MG/20.3 ML UDCUP PEG PRN ×2 (08:39→20:23)
[2019-08-23] MEDS: ENOXAPARIN SODIUM 40 MG/0.4 ML SYRINGE SQ SCH (08:39)
[2019-08-23] MEDS: METOPROLOL TARTRATE 25 MG TAB PO SCH ×2 (08:40→20:22)
[2019-08-23] MEDS: AMLODIPINE BESYLATE 5 MG TAB PO SCH (08:40)
[2019-08-23] MEDS: OSELTAMIVIR PHOSPHATE 75 MG CAP PO SCH (08:40)
[2019-08-23] MEDS: POLYETHYLENE GLYCOL 3350 17 GM POWD.PACK PO SCH ×2 (08:40→20:22)
[2019-08-23] MEDS: MAGNESIUM 2GM PREMIX 50ML 50 ML IV SCH (08:41)
[2019-08-23] MEDS: FLUTICASONE PROPIONATE 50MCG/SPRAY 16 GM BOTTLE EN SCH (09:00)
[2019-08-23] MEDS: BALSAM PERU/CASTOR OIL 60 GM TUBE TP SCH ×4 (09:00→21:38)
[2019-08-23] MEDS: CLOTRIMAZOLE 30 GM CREAM.GM. TP SCH ×2 (09:00→21:37)
--- NOTE | 2019-08-23 09:00 | NUR ---
PT IS SLEEPING AND APPEARS TO BE COMFORTABLE.
[2019-08-23] MEDS: VANCOMYCIN 1GM+NS 250ML 250 ML IV SCH ×2 (13:17→23:56)
--- NOTE | 2019-08-23 14:25 | NUR ---
HERE AND SPOKE WITH OF THE PLAN OF CARE.
[2019-08-23] MEDS: LANSOPRAZOLE 15 MG SOLU TAB PEG SCH (15:59)
[2019-08-23] MEDS: MELATONIN PO SCH (20:22)
[2019-08-23] MEDS ORDERED: ZOLPIDEM TARTRATE 5 MG TAB PO PRN (21:00)
[2019-08-23 23:47] LABS: CREATININE 0.8 mg/dL (0.5-1.5)
[2019-08-23 23:56] LABS: POTASSIUM 2.7 mmol/L (3.5-5.1)
[2019-08-24] VITALS (21 sets, daily range): BP systolic 112–178; BP diastolic 73–102
[2019-08-24] MEDS: POTASSIUM CHLORIDE 10% ELIXIR 20 MEQ/15 ML UDCUP PO PRN ×2 (00:27→02:39)
[2019-08-24] MEDS: POTASSIUM CHLORIDE 20MEQ/100ML 100 ML IV PRN ×2 (00:27→02:39)
[2019-08-24] MEDS: DOXYCYCLINE 100MG+NS 250ML 250 ML IV SCH ×2 (01:23→16:07)
[2019-08-24] MEDS: METHYLPREDNISOLONE SOD SUCC 40MG/ML 1ML IVP SCH ×3 (04:05→20:05)
[2019-08-24] MEDS: ZOSYN 3.375GM+NS 50ML 50 ML IV SCH ×3 (04:05→20:25)
[2019-08-24] MEDS: BENZONATATE 100 MG CAPSULE PO SCH ×4 (04:57→22:56)
[2019-08-24 05:55] LABS: CREATININE 0.9 mg/dL (0.5-1.5); MAGNESIUM 2.4 mg/dL (1.80-2.40); PHOSPHORUS 3.1 mg/dL (2.5-4.9); POTASSIUM 4.6 mmol/L (3.5-5.1)
[2019-08-24] MEDS: BUDESONIDE 0.5 MG/2 ML INH IH SCH ×2 (07:30→18:37)
[2019-08-24] MEDS: METOPROLOL TARTRATE 25 MG TAB PO SCH ×2 (08:43→20:25)
[2019-08-24] MEDS: POLYETHYLENE GLYCOL 3350 17 GM POWD.PACK PO SCH ×3 (08:43→20:25)
[2019-08-24] MEDS: AMLODIPINE BESYLATE 5 MG TAB PO SCH (08:43)
[2019-08-24] MEDS: ONDANSETRON HCL 4 MG/2 ML VIAL IVP PRN ×2 (08:43→12:04)
[2019-08-24] MEDS: FLUTICASONE PROPIONATE 50MCG/SPRAY 16 GM BOTTLE EN SCH (08:45)
[2019-08-24] MEDS: ENOXAPARIN SODIUM 40 MG/0.4 ML SYRINGE SQ SCH (08:46)
[2019-08-24] MEDS: BALSAM PERU/CASTOR OIL 60 GM TUBE TP SCH ×4 (08:51→21:18)
[2019-08-24] MEDS: CLOTRIMAZOLE 30 GM CREAM.GM. TP SCH ×2 (08:51→21:18)
[2019-08-24] MEDS: ACETAMINOPHEN ELIXIR 650 MG/20.3 ML UDCUP PEG PRN ×2 (09:34→21:10)
--- NOTE | 2019-08-24 09:57 | NUR ---
Tube Feeding Recommendations COPD w/ Bipap dependance. Stg 4 Lung CA, pending chemo. Labs and meds reviewed. Skin is intact. RD recommends to start tube feeding using Vital af 1.2 Start full strength at 15ml/hr Increase rate by 5mls every 5hrs as tolerated Goal rate is 35ml/hr Flush with 130ml Q6hrs RN notified Monitor residuals, labs, BM RD will continue to monitor and follow up, thank you.
[2019-08-24 10:09] LABS: ABG BASE EXCESS 8.4 mmol/L (-2.0-3.0); ABG HCO3 32.2 mmol/L (21.0-28.0); ABG OXYGEN SATURATION 96.4 % (95.0-99.0); ABG PCO2 41 mmHg (32-45)
[2019-08-24] MEDS ORDERED: ONDANSETRON HCL 4 MG/2 ML VIAL IVP PRN (12:30)
[2019-08-24] MEDS ORDERED: PHARMACY COMMUNICATION MISC SCH (13:30)
[2019-08-24] MEDS: BIOTENE 44.3 ML SOLUTION MM SCH ×2 (15:27→21:17)
[2019-08-24] MEDS: LANSOPRAZOLE 15 MG SOLU TAB PEG SCH (16:19)
[2019-08-24] MEDS: METOCLOPRAMIDE 10 MG/2 ML VIAL IVP SCH (17:51)
[2019-08-24] MEDS: ARTIFICIAL TEARS 3.5 GM OINTMENT OU SCH (20:25)
[2019-08-24] MEDS: MELATONIN PO SCH (21:06)
[2019-08-25] VITALS (9 sets, daily range): BP systolic 117–150; BP diastolic 62–92
[2019-08-25] MEDS: METOCLOPRAMIDE 10 MG/2 ML VIAL IVP SCH ×5 (01:03→23:31)
[2019-08-25] MEDS: DOXYCYCLINE 100MG+NS 250ML 250 ML IV SCH ×2 (01:23→14:06)
[2019-08-25] MEDS: ZOSYN 3.375GM+NS 50ML 50 ML IV SCH ×4 (04:16→22:51)
[2019-08-25] MEDS: METHYLPREDNISOLONE SOD SUCC 40MG/ML 1ML IVP SCH ×3 (04:16→20:00)
[2019-08-25] MEDS: BENZONATATE 100 MG CAPSULE PO SCH ×4 (04:19→23:15)
[2019-08-25] MEDS: BUDESONIDE 0.5 MG/2 ML INH IH SCH ×2 (06:35→18:59)
[2019-08-25 06:41] LABS: HEMATOCRIT 37.8 % (36-48); MEAN CORPUSCULAR HEMOGLOBIN 27.7 pg (27.0-33.0); MEAN CORPUSCULAR HGB CONC 30.2 g/dL (32.0-36.0); MEAN CORPUSCULAR VOLUME 91.7 fL (79-99); PLATELET COUNT (AUTO) 97 K/uL (130-400); RED BLOOD CELL COUNT(AUTO) 4.12 MIL/uL (4.00-5.50); WHITE BLOOD COUNT (AUTO) 20.5 K/uL (4.8-10.8)
[2019-08-25 06:57] LABS: POTASSIUM 3.4 mmol/L (3.5-5.1)
[2019-08-25 06:58] LABS: CREATININE 0.9 mg/dL (0.5-1.5)
[2019-08-25] MEDS: METOPROLOL TARTRATE 25 MG TAB PO SCH ×3 (08:28→22:52)
[2019-08-25] MEDS: POLYETHYLENE GLYCOL 3350 17 GM POWD.PACK PO SCH ×3 (08:28→21:44)
[2019-08-25] MEDS: AMLODIPINE BESYLATE 5 MG TAB PO SCH (08:28)
[2019-08-25] MEDS: FLUTICASONE PROPIONATE 50MCG/SPRAY 16 GM BOTTLE EN SCH (08:28)
[2019-08-25] MEDS: ARTIFICIAL TEARS 3.5 GM OINTMENT OU SCH ×2 (08:29→22:52)
[2019-08-25] MEDS: BIOTENE 44.3 ML SOLUTION MM SCH ×2 (08:29→22:51)
[2019-08-25] MEDS: BALSAM PERU/CASTOR OIL 60 GM TUBE TP SCH ×4 (08:30→22:52)
[2019-08-25] MEDS: CLOTRIMAZOLE 30 GM CREAM.GM. TP SCH ×2 (08:30→22:52)
[2019-08-25] MEDS: POTASSIUM CHLORIDE 10% ELIXIR 20 MEQ/15 ML UDCUP PO PRN ×2 (11:29→16:11)
[2019-08-25] MEDS: MORPHINE SULFATE 2 MG/ML 1ML SYG IVP PRN (11:30)
[2019-08-25] MEDS ORDERED: VANCOMYCIN 1GM+NS 250ML 250 ML IV SCH (12:00)
[2019-08-25] MEDS: ENOXAPARIN SODIUM 40 MG/0.4 ML SYRINGE SQ SCH (12:42)
--- NOTE | 2019-08-25 14:25 | NUR ---
DYSPHAGIA EVAL COMPLETED. -S/S OF ASPIRATION. RECOMMEND PLEASURE FEEDS OF FULL LIQUID DIET, SUPPLEMENTED WITH NG TUBE FEEDINGS. RECOMMENDATIONS: 1. DYSPHAGIA THERAPY 2-5X WEEK TO INCREASE ORAL MOTOR STRENGTH AND PHARYNGEAL SWALLOW: LTG#1: Pt WILL TOLERATE LEAST RESTRICTIVE DIET TO MEET NUTRITION/HYDRATION WITH NO S/S OF ASPIRATION. LTG#2: SKILLED EDUCATION Pt/FAMILY/STAFF STG#1: Pt WILL PARTICIPATE IN LARYNGEAL ELEVATION/EXCURSION EXERCISES WITH 80% ACCURACY. STG#2: Pt WILL PARTICIPATE IN TONGUE BASE RETRACTION EXERCISES WITH 80% ACCURACY. STG#3: Pt WILL PARTICIPATE IN ORAL MOTOR EXERCISES WITH 80% ACCURACY. STG#4: Pt WILL PARTICIPATE IN PLEASURE FEEDS OF FULL LIQUIDS CONSISTENCY WITH NO S/S OF ASPIRATION. STG#5: PT WILL TOLERATE THERAPEUTIC TRIALS OF ADVANCED TEXTURES OF MECHANICAL SOFT/CHOPPED TRIALS WITH NO OVERT S/S OF ASPIRATION. STG#6: SKILLED EDUCATION Pt/FAMILY/STAFF. PLEASE NOTE: PLEASURE FEEDS ARE TO BE COMPLETED WHEN Pt'S RESPIRATORY STATUS IS STABLE AND Pt IS NOT ON BIPAP. IF Pt'S RESPIRATORY STATUS DECLINES PLEASE STOP PLEASURE FEEDS AND USE NG TUBE FEEDINGS ONLY. CORONER/MEDICAL EXAMINER COORDINATED CARE WITH NURSE SANCHEZ, Pt AND . THEY VERBALIZED UNDERSTANDING AND COMPLIANCE WITH RECOMMENDATIONS. Addendum: 08/25/19 at 1432 by NELY RAGSDALE Amended: Links added.
[2019-08-25] MEDS: INSULIN HUMULIN R 100 UNIT/ML 3ML SQ SCH ×2 (16:12→21:00)
--- NOTE | 2019-08-25 16:15 | NUR ---
PATIENT MOVED TO ROOM 204 AT THIS TIME; AT BEDSIDE; BEDSIDE REPORT GIVEN TO ANNIE MONROY
[2019-08-25] MEDS: LANSOPRAZOLE 15 MG SOLU TAB PEG SCH (16:18)
--- NOTE | 2019-08-25 16:30 | NUR ---
RECEIVED TRANSFER TO ROOM 204. ALERT AND ORIENTED X2. DENIES ANY C/O PAIN, DENIES ANY SOB. HIGH FLOW O2 IN PLACE AT 60%. NGT IN PLACE TO RIGHT NARE WITH VITAL AF AT 35ML/HR VIA FEEDING PUMP. F/C IN PLACE. BED LOW, SIDE RAILS UP X3. BLE'S WITH AGUILAR HOSE IN PLACE, HEELS ELEVATED ON PILLOWS. CALL LIGHT WITHIN REACH, VERBALIZED ABILITY TO USE. CONT. PULSE OX. IN PLACE, CURRENT O2 SAT 97%.
[2019-08-25] MEDS: MELATONIN PO SCH (21:00)
[2019-08-25 22:57] LABS: APPEARANCE,URINE TURBID (CLEAR); BILIRUBIN,URINE NEGATIVE (NEGATIVE); COLOR,URINE YELLOW (YELLOW); GLUCOSE, URINE (UA) NEGATIVE (NEGATIVE); KETONES,URINE NEGATIVE (NEGATIVE); LEUKOCYTE ESTERASE ,URINE NEGATIVE (NEGATIVE); NITRATE,URINE NEGATIVE (NEGATIVE); OCCULT BLOOD,URINE NEGATIVE (NEGATIVE); PH,URINE 7.5 (5.0-8.0); PROTEIN,URINE TRACE mg/dL (NEGATIVE); UROBILINOGEN,URINE 0.2 mg/dL (0.2-1.0)
[2019-08-25 23:10] LABS: BACTERIA,URINE Rare /HPF (None Seen); RBC,URINE 0-1 /HPF (0-1); WBC,URINE 0-1 /HPF (0-1); YEAST,URINE BUDDING Many /HPF (None Seen)
[2019-08-25] MEDS: VANCOMYCIN 750MG + NS 250 ML IV SCH ×2 (23:24)
[2019-08-26] MEDS: DOXYCYCLINE 100MG+NS 250ML 250 ML IV SCH ×2 (03:14→13:59)
[2019-08-26 03:27] VITALS: BP 139/84
[2019-08-26 03:58] LABS: HEMATOCRIT 34.6 % (36-48); MEAN CORPUSCULAR HEMOGLOBIN 27.8 pg (27.0-33.0); MEAN CORPUSCULAR HGB CONC 30.6 g/dL (32.0-36.0); MEAN CORPUSCULAR VOLUME 90.8 fL (79-99); PLATELET COUNT (AUTO) 91 K/uL (130-400); RED BLOOD CELL COUNT(AUTO) 3.81 MIL/uL (4.00-5.50); RED CELL DISTRIBUTION WIDTH 18.2 % (11.0-15.5); WHITE BLOOD COUNT (AUTO) 19.5 K/uL (4.8-10.8)
[2019-08-26 04:09] LABS: CREATININE 0.8 mg/dL (0.5-1.5); POTASSIUM 3.4 mmol/L (3.5-5.1)
[2019-08-26] MEDS: BENZONATATE 100 MG CAPSULE PO SCH ×4 (05:05→23:03)
[2019-08-26] MEDS: METOCLOPRAMIDE 10 MG/2 ML VIAL IVP SCH ×3 (05:06→17:39)
[2019-08-26] MEDS: ZOSYN 3.375GM+NS 50ML 50 ML IV SCH ×2 (05:45→12:14)
[2019-08-26] MEDS: METHYLPREDNISOLONE SOD SUCC 40MG/ML 1ML IVP SCH ×3 (05:45→21:26)
[2019-08-26] MEDS: INSULIN HUMULIN R 100 UNIT/ML 3ML SQ SCH ×4 (05:50→22:21)
[2019-08-26] MEDS: BUDESONIDE 0.5 MG/2 ML INH IH SCH ×2 (07:18→18:39)
[2019-08-26 07:49] VITALS: BP 141/91
[2019-08-26] MEDS: ENOXAPARIN SODIUM 40 MG/0.4 ML SYRINGE SQ SCH (09:51)
[2019-08-26] MEDS: AMLODIPINE BESYLATE 5 MG TAB PO SCH (09:51)
[2019-08-26] MEDS: POLYETHYLENE GLYCOL 3350 17 GM POWD.PACK PO SCH ×2 (09:51→21:00)
[2019-08-26] MEDS: METOPROLOL TARTRATE 25 MG TAB PO SCH ×3 (09:51→21:26)
[2019-08-26] MEDS: ARTIFICIAL TEARS 3.5 GM OINTMENT OU SCH ×2 (10:09→21:35)
[2019-08-26] MEDS: FLUTICASONE PROPIONATE 50MCG/SPRAY 16 GM BOTTLE EN SCH (10:09)
[2019-08-26] MEDS: BIOTENE 44.3 ML SOLUTION MM SCH ×2 (10:09→21:33)
[2019-08-26] MEDS: BALSAM PERU/CASTOR OIL 60 GM TUBE TP SCH ×4 (10:10→21:34)
[2019-08-26] MEDS: CLOTRIMAZOLE 30 GM CREAM.GM. TP SCH ×2 (10:10→21:35)
[2019-08-26] MEDS: MORPHINE SULFATE 2 MG/ML 1ML SYG IVP PRN ×2 (10:19→18:37)
[2019-08-26] MEDS: VANCOMYCIN 750MG + NS 250 ML IV SCH ×4 (11:56→21:26)
[2019-08-26 12:14] VITALS: BP 127/80
--- NOTE | 2019-08-26 12:55 | NUR ---
RD FOLLOW UP NOTE Pt tolerating current tube feeding of Vital AF 1.2 @35mls/hr, recently changed from Jevity 1.5 due to intolerance. Noted and monitored nutritional labs: Na 155, K 3.4, Cl 117, BUN 27, BG 213, Ca 8.0, Alb 2.3. RD to continue to monitor. Please notify RD as additional nutrition concerns arise. Thank you. Addendum: 08/27/19 at 0841 [address] RD Amended: Links added.
[2019-08-26 16:33] VITALS: BP 144/88
[2019-08-26] MEDS: LANSOPRAZOLE 15 MG SOLU TAB PEG SCH (17:00)
--- NOTE | 2019-08-26 17:37 | NUR ---
DC PLAN VISITED WITH PATIENT SPOKE TO SPOUSE REGARDING DC PLAN. SPOKE TO DR. OWEN REGARDING LTAC SAID SOUNDS LIKE A GOOD IDEA. ASKED DR. Mendieta FOR ABX REC SAID 3 WEEKS. BATSHEVA SIGNED BY SPOUSE. EXPLAINED NEED FOR LTAC. VERBALIZED UNDERSTANDING INFO SENT. FAX BUSY EMAILED TO [facility]. [facility] NOTIFIED. PENDING ACCEPTANCE. MOT AND EMS STARTED IN CHART. COVID FORM ALSO NEEDS SIGNATURE. Addendum: 08/26/19 at 1742 by GLENIS VAUGHN RN CM Amended: Links added.
[2019-08-26 19:35] VITALS: BP 138/89
[2019-08-26] MEDS: MELATONIN PO SCH (22:07)
[2019-08-27] VITALS: BP 136/89
[2019-08-27] MEDS: DOXYCYCLINE 100MG+NS 250ML 250 ML IV SCH (01:15)
[2019-08-27] MEDS: METOCLOPRAMIDE 10 MG/2 ML VIAL IVP SCH ×3 (01:15→12:04)
[2019-08-27] MEDS: MORPHINE SULFATE 2 MG/ML 1ML SYG IVP PRN (01:33)
[2019-08-27 04:00] VITALS: BP 127/76
[2019-08-27] MEDS: METHYLPREDNISOLONE SOD SUCC 40MG/ML 1ML IVP SCH ×2 (04:20→12:07)
[2019-08-27] MEDS: BENZONATATE 100 MG CAPSULE PO SCH ×2 (05:15→11:15)
[2019-08-27] MEDS: INSULIN HUMULIN R 100 UNIT/ML 3ML SQ SCH ×3 (06:42→16:44)
[2019-08-27 07:00] VITALS: BP 124/78
[2019-08-27] MEDS: BUDESONIDE 0.5 MG/2 ML INH IH SCH (07:16)
--- NOTE | 2019-08-27 10:28 | NUR ---
DC PLAN SPOKE TO REP REFERRAL BEING DONE. LET CHARGE NURSE KNOW ABOUT NEEDING SIGNATURE FROM DR. OWEN FOR COVID AND MOT PENDING. Addendum: 08/27/19 at 1031 by GLENIS VAUGHN RN CM Amended: Links added.
[2019-08-27] MEDS: POLYETHYLENE GLYCOL 3350 17 GM POWD.PACK PO SCH (10:34)
[2019-08-27] MEDS: AMLODIPINE BESYLATE 5 MG TAB PO SCH (10:34)
[2019-08-27] MEDS: ENOXAPARIN SODIUM 40 MG/0.4 ML SYRINGE SQ SCH (10:34)
[2019-08-27] MEDS: METOPROLOL TARTRATE 25 MG TAB PO SCH ×2 (10:34→12:07)
[2019-08-27] MEDS: VANCOMYCIN 750MG + NS 250 ML IV SCH ×2 (10:37)
[2019-08-27 11:00] VITALS: BP 141/73
[2019-08-27] MEDS ORDERED: DOXYCYCLINE 100MG+NS 250ML 250 ML IV SCH (11:00)
[2019-08-27] MEDS ORDERED: LORAZEPAM 0.5 MG TABLET NG PRN (12:30)
--- NOTE | 2019-08-27 13:06 | NUR ---
FOLLOW UP Pt CURRENTLY LETHARGIC. HOLD PLEASURE FEEDS AT THIS TIME. RECOMMEND FULL LIQUIDS PLEASURE FEEDS WHEN Pt ALERT AND WITH ADEQUATE BREATHING (NO TACHYPNEA AND NOT ON BIPAP). RESEARCH PROGRAM INTERN COORDINATED CARE WITH NURSE LORENZO. RESEARCH PROGRAM INTERN WILL CONTINUE TO FOLLOW Pt. Addendum: 08/27/19 at [address] Amended: Links added.
--- NOTE | 2019-08-27 14:02 | NUR ---
DC PLAN GOT COVID FORM SIGNED BY DR. OWEN AT 1230. SENT FORM TO CHASITYM[facility] LUCAS WILL SUBMITT FOR APPROVAL. MOT AND EMS STARTED IN CHART. MED REC FILLED IN CHART. Addendum: 08/27/19 at 1408 by GLENIS VAUGHN RN CM Amended: Links added.
--- NOTE | 2019-08-27 14:12 | NUR ---
MARJORIE LAWRENCE [facility] CALLED SAID THAT SHE SPOKE TO THIS MORNING AND HE TOLD HER TO PLEASE TALK TO DAUGHTER. SHE TRIED CALLING THE DAUGHTER SEVERAL TIMES NO ANSWER. THEY ARE ACCEPTING THE PATIENT. MOT FILLED LET HOUSE KNOW. LET NURSE KNOW NEED TO CALL DR. OWEN FOR DC ORDER. Addendum: 08/27/19 at 1415 by GLENIS VAUGHN RN CM Amended: Links added.
[2019-08-27 15:22] VITALS: BP 140/78
--- NOTE | 2019-08-27 15:24 | NUR ---
MD NOTIFICATION DR OWEN NOTIFIED PT ACCEPTED TO [facility].
--- NOTE | 2019-08-27 15:30 | NUR ---
[facility]
--- NOTE | 2019-08-27 16:55 | NUR ---
DISCHARGE NOTIFIED M [facility] CM & PAPER PRODUCTS MACHINE OPERATOR 3 ATTEMPTS HAVE BEEN MADE TO CALL REPORT TO [facility].
--- NOTE | 2019-08-27 17:11 | NUR ---
DISCHARGE CALL BACK RECEIVED FROM LUCY OROURKE RN FROM [facility]. REPORT GIVEN @ THIS TIME.
--- NOTE | 2019-08-27 17:25 | NUR ---
DISCHARGE [facility] CALLED TO REQUEST TRANSPORT TO [facility].
--- NOTE | 2019-08-27 18:05 | NUR ---
DISCHARGE EMS HERE TO TRANSFER PT TO [facility]. TELE NEVA REMOVED. SON @ BEDSIDE.
== END 2019-08-27 18:05 | DRG 871 ==
LOC: EDH 15:06 → EDHIP 17:15 → 4CH 18:29 → 3CH 18:48 → 2BH 08-18 09:35 → 2AH 08-25 16:07
PROVIDERS: ADMIT Internal Medicine Hematology & Oncology; ATTEND Internal Medicine Hematology & Oncology
PROC: 5A09357 Assistance with Respiratory Ventilation, Less than 24 Consecutive Hours, Continuous Positive Airway Pressure (ICD-10-PCS; principal; 2019-08-16)
PROC: 5A09457 Assistance with Respiratory Ventilation, 24-96 Consecutive Hours, Continuous Positive Airway Pressure (ICD-10-PCS; 2019-08-18)
PROC: 5A09357 Assistance with Respiratory Ventilation, Less than 24 Consecutive Hours, Continuous Positive Airway Pressure (ICD-10-PCS; 2019-08-23)
PROC: 5A09357 Assistance with Respiratory Ventilation, Less than 24 Consecutive Hours, Continuous Positive Airway Pressure (ICD-10-PCS; 2019-08-26)
DX: A41.9 Sepsis, unspecified organism (principal); J18.9 Pneumonia, unspecified organism; E43 Unspecified severe protein-calorie malnutrition; J96.01 Acute respiratory failure with hypoxia; J96.02 Acute respiratory failure with hypercapnia; R65.21 Severe sepsis with septic shock; J44.0 Chronic obstructive pulmonary disease with (acute) lower respiratory infection; C34.90 Malignant neoplasm of unspecified part of unspecified bronchus or lung; C79.9 Secondary malignant neoplasm of unspecified site; E87.0 Hyperosmolality and hypernatremia; E87.1 Hypo-osmolality and hyponatremia; J44.1 Chronic obstructive pulmonary disease with (acute) exacerbation; J91.0 Malignant pleural effusion; D64.9 Anemia, unspecified; D69.6 Thrombocytopenia, unspecified; E87.6 Hypokalemia; G47.00 Insomnia, unspecified; I10 Essential (primary) hypertension; T50.2X5A Adverse effect of carbonic-anhydrase inhibitors, benzothiadiazides and other diuretics, initial encounter; Y92.89 Other specified places as the place of occurrence of the external cause; Z74.01 Bed confinement status; Z92.21 Personal history of antineoplastic chemotherapy; Z92.3 Personal history of irradiation; Z99.81 Dependence on supplemental oxygen; Z68.23 Body mass index [BMI] 23.0-23.9, adult; Z79.899 Other long term (current) drug therapy
CPT/HCPCS: 36415; 36600; 71045; 74018; 80048; 80053; 80202; 81001; 82140; 82435; 82550; 82803; 82947; 82948; 83605; 83735; 83874; 83880; 84100; 84132; 84145; 84295; 84484; 85018; 85025; 85027; 85610; 85730; 87040; 87071; 87088; 87205; 87486; 87581; 87633; 87798; 92610; 93005; 93306; 94640; 94660; 94664; A4344; G0378; J1650; J1815; J1940; J2405; J2543; J2765; J2920; J2930; J3370; J3475; J3480; J3490; J7030; J7050